=== PATIENT | female | born 1970 | race Caucasian/White ===

== ENCOUNTER 2016-12-20 19:43 | Emergency (ER) | payer BC, MEDICAID ==
[~2016-12-20] VITALS: Ht 162.6 cm; Wt 74.5 kg
[~2016-12-20 19:43] MED LIST: NPH SQ; PREN-39 PO; SS SC
[2016-12-20 19:45] VITALS: Ht 162.6 cm; Wt 74.5 kg
[2016-12-20] MEDS ORDERED: ACETAMINOPHEN 325 MG TAB PO ONE (20:30)
--- NOTE | 2016-12-20 21:06 | ERD ---
ER Documentation Chief Complaint Date/Time DATE: 12/20/16 TIME: 21:05 Chief Complaint pelvic pain x 4 days HPI Patient is a 46-year-old female here with israeli speaking friend who presents to the ED with bilateral pelvic pain, dysuria and urgency 3 days. States that she has urgency and frequency. Denies fever chills, abdominal pain, nausea, vomiting or diarrhea. Last bowel movement was today. Denies back pain. Denies seizures or rashes. Denies chest pain or cough or shortness of breath. Denies leg pain or leg swelling. No other complaints. Denies hematuria. States that her diabetes is well controlled and denies polyuria, polyphagia or polydipsia ROS All systems reviewed and are negative except as per history of present illness. Medications Home Meds Active Scripts Acetaminophen* (Tylophen*) 500 Mg Capsule, 1 CAP PO Q6H Y for PAIN AND OR ELEVATED TEMP, #20 CAP Prov:YANCY MARTIN PA-C 12/20/16 Nitrofurantoin Monohyd Macrocr* (Macrobid*) 100 Mg Capsr, 100 MG PO BID for 7 Days, CAP Prov:YANCY MARTIN PA-C 12/20/16 Reported Medications Insulin Human Nph (Novolin-N) 100 Units/Ml Susp, 0 SQ HS, #12 09/21/13 Insulin Human Regular (Novolin-R U-100) 100 Unit/Ml Soln, 0 SC AC DINNER, #10 09/21/13 Insulin Human Regular (Novolin-R U-100) 100 Unit/Ml Soln, 0 SC AC BREAKFAST, #15 09/21/13 Insulin Human Nph (Novolin-N) 100 Units/Ml Susp, 0 SQ AC BREAKFAST, #10 09/21/13 Vits W-Ca,Fe,Fa(<1MG) ( Vitamins) 1 Tab Tablet, 1 TAB PO DAILY 09/21/13 Allergies Allergies: Coded Allergies: No Known Allergy (Unverified , 03/19/13) PMhx/Soc History of Surgery: Yes (C-SEC ) Anesthesia Reaction: No Hx Neurological Disorder: No Hx Respiratory Disorders: No Hx Cardiac Disorders: No Hx Psychiatric Problems: No Hx Miscellaneous Medical Probl: Yes (DM) Hx Alcohol Use: No Hx Substance Use: No Hx Tobacco Use: No Smoking Status: Never smoker FmHx Family History: No coronary disease, No diabetes, No other Physical Exam Vitals Vital Signs Date Time Temp Pulse Resp B/P Pulse Ox O2 Delivery O2 Flow Rate FiO2 12/20/16 19:45 99.5 83 20 126/71 100 Physical Exam GENERAL: Well-developed, well-nourished female. Appears in no acute distress. HEAD: Normocephalic, atraumatic. EYES: Pupils are equally reactive bilaterally. EOMs grossly intact. No conjunctival erythema. ENT: Moist mucous membranes. No uvula deviation. No kissing tonsils. No exudates. NECK: Supple. No lymphadenopathy or thyromegaly. No meningismus. negative kernig. negative brudinski. LUNG: Clear to auscultation bilaterally. No rhonchi, wheezing, rales or coarse breath sounds. HEART: Regular rate and rhythm. No murmurs, rubs or gallops. ABDOMEN: No scars, ecchymosis or rashes noted. Soft, nontender, and nondistended. Positive bowel sounds in all four quadrants. No rebound tenderness , no guarding. (-) McBurneys point tenderness. No CVA tenderness. BACK: No midline tenderness. Extremities: Equal pulses bilaterally. No peripheral clubbing, cyanosis or edema. No unilateral leg swelling. NEUROLOGIC: Alert and oriented. Moving all four extremities. 5/5 strength in all extremities. Normal speech. Steady gait. SKIN: Normal color. Warm and dry. No rashes or lesions. Capillary refill < 2 seconds Results 24 hrs Laboratory Tests Test 12/20/16 20:29 Urine Color YELLOW Urine Clarity CLEAR Urine pH 6.0 Urine Specific [place] 1.030 Urine Ketones TRACEmg/dL Urine Nitrite NEGATIVEmg/dL Urine Bilirubin NEGATIVEmg/dL Urine Urobilinogen NEGATIVEmg/dL Urine Leukocyte Esterase 1+Robbie/ul Urine Microscopic RBC 17/HPF Urine Microscopic WBC 27/HPF Urine Hemoglobin 2+mg/dL Urine Glucose 3+mg/dL Urine Total Protein NEGATIVEmg/dl Current Medications Medications (Trade) Dose Ordered Sig/Edilia Route PRN Reason Start Time Stop Time Status Last Admin Dose Admin Acetaminophen (Tylenol Tab) 650 mg ONCE ONCE PO 12/20/16 20:30 12/20/16 20:31 DC 12/20/16 20:34 Procedures/MDM ER COURSE: I kept the patient and/or family informed of laboratory and diagnostic imaging results throughout the emergency room course. IMAGING STUDIES [id number] [id number] Radiology Main Line: [phone] DIAGNOSTIC IMAGING REPORT Patient: LANDON THOMPSON : 1970 Age: 46 Sex: F MR #: [id number] DOS: 12/20/16 2020 Ordering MD: YANCY MARTIN PA-C Location: [facility] Room/Bed: PROCEDURE: US Pelvis. CLINICAL INDICATION: Pelvic pain TECHNIQUE: Multiple sonographic images of the pelvis were obtained utilizing a transabdominal and endovaginal technique. The images were reviewed on a PACS workstation. COMPARISON: None available FINDINGS: Uterus: Normal in size, contour and echogenicity with no evidence for myometrial masses. Size is estimated at 6.3 x 4.1 x 3.3 cm. Cervix: No abnormalities of significance are seen. Endometrium: Normal in thickness; 3.4 mm. Right ovary / adnexa: Normal in size estimated at 1.7 x 1.6 x 1.5 cm. No evidence for masses, normal blood flow on Doppler interrogation. Left ovary/adnexa: Normal in size estimated at 1.5 x 2.1 x 1.4 cm. No evidence for solid masses, normal blood flow on Doppler interrogation. Tiny para ovarian cyst of 0.7 x 0.7 x 0.7 cm. Cul-de-sac: No evidence of free fluid. RPTAT:HJJR IMPRESSION: Tiny left paraovarian cyst of approximately 7 mm, otherwise unremarkable pelvic ultrasound. Physician Jameel Date Time Electronically viewed and signed by Physician Jameel on 12/20/2016 22:07 JR/ CC: YANCY MARTIN PA-C LABORATORY STUDIES Urinalysis shows positive leukocytes with no nitrites, positive hemoglobinuria MEDICAL DECISION MAKING: This is a 46-year-old female who presents with pelvic pain and dysuria 3 days. Vital signs were reviewed. Patient is afebrile. Patient is not hypoxic. Patient is nontoxic or ill-appearing. Patient's urinalysis is positive for cystitis. Low suspicion for ovarian torsion, PID, tuboovarian abscess, ectopic , bowel obstruction, pyelonephritis, appendicitis, cervicitis, septic , molar , HELLP syndrome, preeclampsia, eclampsia, placenta previa, placenta abruptia. Patient was given Tylenol in the ED. Tolerated well with no adverse reaction. Low suspicion for DKA or HON K. DISCHARGE: At this time, patient is stable for discharge and outpatient management with no new complaints during the ER course. Patient was sent home with Macrobid and Tylenol and a copy of imaging report and to follow-up with prefitter. Patient will be discharged home with instructions to recheck for new or worsening symptoms such as fever, nausea, weakness, LOC and to follow up with primary care in the next 1-2 days. Patient was advised to return to the ER for any new or worsening symptoms. Plan was discussed and patient and/or family understands and agrees. Home instructions were given. Departure Diagnosis: Primary Impression: Cystitis Condition: Stable YANCY MARTIN PA-C Dec 20, 2016 21:06
[2016-12-20 21:22] LABS: ADD UMIC YES; UR ASCORBIC ACID NEGATIVE (NEGATIVE); UR BILIRUBIN (Dip) NEGATIVE (NEGATIVE); UR BLOOD (Dip) 2+ mg/dL (NEGATIVE); UR CLARITY CLEAR (CLEAR); UR COLOR YELLOW (YELLOW); UR GLUCOSE (Dip) 3+ mg/dL (NEGATIVE); UR KETONES (Dip) TRACE mg/dL (NEGATIVE); UR LEUKOCYTE ESTERASE (Dip) 1+ Leu/ul (NEGATIVE); UR NITRITE (Dip) NEGATIVE (NEGATIVE); UR RBC 17 /HPF (0-5); UR TOTAL PROTEIN (Dip) NEGATIVE (NEGATIVE); UR UROBILINOGEN (Dip) NEGATIVE (NEGATIVE)
[2016-12-20] MEDS ORDERED: NITR-58 PO (22:04)
[2016-12-20] MEDS ORDERED: ACET500C5 PO (22:04)
--- NOTE | 2016-12-20 22:07 | RADRPT ---
PROCEDURE: US Pelvis. CLINICAL INDICATION: Pelvic pain TECHNIQUE: Multiple sonographic images of the pelvis were obtained utilizing a transabdominal and endovaginal technique. The images were reviewed on a PACS workstation. COMPARISON: None available FINDINGS: Uterus: Normal in size, contour and echogenicity with no evidence for myometrial masses. Size is est imated at 6.3 x 4.1 x 3.3 cm. Cervix: No abnormalities of significance are seen. Endometrium: Normal in thickness; 3.4 mm. Right ovary / adnexa: Normal in size estimated at 1.7 x 1.6 x 1.5 cm. No evidence for masses, norm al blood flow on Doppler interrogation. Left ovary/adnexa: Normal in size estimated at 1.5 x 2.1 x 1.4 cm. No evidence for solid masses, no rmal blood flow on Doppler interrogation. Tiny para ovarian cyst of 0.7 x 0.7 x 0.7 cm. Cul-de-sac: No evidence of free fluid. RPTAT:HJJR IMPRESSION: Tiny left paraovarian cyst of approximately 7 mm, otherwise unremarkable pelvic ultrasound. Physician Jameel Date Time Electronically viewed and signed by Physician Jameel on 12/20/2016 22:07 /
[2016-12-20 22:32] VITALS: BP 128/83; PULSE 78; RESP 20; TEMP 98.9
== END 2016-12-20 22:33 | disposition home or self-care (01) ==
LOC: FTE 19:43
DX: N30.90 Cystitis, unspecified without hematuria (principal); E11.9 Type 2 diabetes mellitus without complications; Z79.4 Long term (current) use of insulin
CPT/HCPCS: 76830; 76856; 81001; 99284; Z7610